=== PATIENT | female | born 1965 | race Caucasian/White ===

== ENCOUNTER 2018-07-12 07:55 | Emergency (ER) | payer MEDICAID ==
[~2018-07-12] VITALS: Ht 160 cm; Wt 93.4 kg
[2018-07-12 07:59] VITALS: BP 135/90
--- NOTE | 2018-07-12 08:05 | NUR ---
PT AMBULATED TO ER BED 03
--- NOTE | 2018-07-12 08:06 | NUR ---
PATIENT PRESENTS TO ED WITH C/O LOWER BACK PAIN X 1 WEEK, NO TRAUMA/INJURY . PT IS AAOX4 WITH EVEN AND STEADY GAIT; LUNGS CLEAR BL; HR EVEN AND REGULAR; PT DENIES ANY FEVER, CP, SOB, OR COUGH AT THIS TIME;DENIES N/V/D; SKIN IS PINK/WARM/DRY; PATIENT STATES PAIN OF 10/10 AT THIS TIME; VSS; PATIENT POSITIONED FOR COMFORT; HOB ELEVATED; BEDRAILS UP X2; BED DOWN. ER MD MADE AWARE OF PT STATUS.
--- NOTE | 2018-07-12 08:40 | NUR ---
Patient being evaluated by DR. GROSSMAN at bedside.
[2018-07-12] MEDS ORDERED: KETOROLAC 60 MG/2 ML VIAL IM ONE (08:45)
[2018-07-12] MEDS ORDERED: hydrOXYzine HCL 25 MG TAB PO ONE (08:45)
[2018-07-12] MEDS ORDERED: DEXAMETHASONE 10 MG/ML VIAL IM ONE (08:45)
--- NOTE | 2018-07-12 08:45 | NUR ---
MEDICATION GIVEN, INDICATION AND SIDE EFFECTS EXPLAINED, PT VERBLAIZED UNDERSTANDING, NO S/E NOTED.
[2018-07-12 09:08] LABS: BILIRUBIN,URINE NEGATIVE (NEGATIVE); BLOOD, URINE 1+ (NEGATIVE); COLOR,URINE YELLOW (YELLOW); LEUKOCYTE ESTERASE ,URINE 1+ (NEGATIVE); NITRITE, URINE NEGATIVE (NEGATIVE); UGLUCOSE NEGATIVE (NEGATIVE)
[2018-07-12 09:11] LABS: BARBITURATE, URINE NEG ng/ml (NEG <=200); BENZODIAZEPINE, URINE NEG ng/mL (NEG <=200); CANNABINOID, URINE NEG ng/mL (NEG <=50); COCAINE, URINE NEG ng/mL (NEG <=300); OPIATE, URINE NEG ng/mL (NEG <=2000); PHENCYCLIDINE SCREEN,URINE NEG ng/mL (NEG <=25)
--- NOTE | 2018-07-12 09:14 | NUR ---
PT IS TAKEN FOR CT.
[2018-07-12 09:34] LABS: APPEARANCE,URINE SLIGHTLY HAZY (CLEAR)
[2018-07-12] MEDS ORDERED: LEVOFLOXACIN 500 MG TAB PO ONE (09:40)
[2018-07-12 11:10] VITALS: BP 132/78
== END 2018-07-12 11:10 | disposition home or self-care (01) ==
LOC: MED 07:55
DX: M54.5 Low back pain (principal); M25.562 Pain in left knee; M25.561 Pain in right knee; Z87.891 Personal history of nicotine dependence; Z90.710 Acquired absence of both cervix and uterus
CPT/HCPCS: 72100; 80305; 81001; 81025; 87086; 96372; 99284; J1100; J1885